=== PATIENT | male | born 1960 | race Hispanic/Latino ===

== ENCOUNTER 2021-11-28 12:51 | Outpatient (CLI) | payer OTHER | END 2021-11-28 12:52 | disposition home or self-care (01) | LOC: MADRAD 12:51 | PROVIDERS: ATTEND Registered Nurse | DX: M54.2 Cervicalgia (principal); M54.40 Lumbago with sciatica, unspecified side; M54.6 Pain in thoracic spine; M47.814 Spondylosis without myelopathy or radiculopathy, thoracic region; M47.816 Spondylosis without myelopathy or radiculopathy, lumbar region; M47.812 Spondylosis without myelopathy or radiculopathy, cervical region | CPT/HCPCS: 72040; 72070; 72100 ==